=== PATIENT | female | born 1950 | race Caucasian/White ===

== ENCOUNTER → 2017-11-06 12:35 | Outpatient (CLI) | payer MEDICARE, SELFPAY ==
--- NOTE | 2017-11-06 12:38 | CDUL_ITS ---
Reason For Study: BRUIT Rt. Velocities/BP Lt. Velocities/BP Prox CCA 87/11 cm/sec. Prox CCA 114/17 cm/sec. Mid CCA 100/26 cm/sec. Mid CCA 106/23 cm/sec. Dist CCA 104/27 cm/sec. Dist CCA 95/29 cm/sec. Prox ICA 80/26 cm/sec. Prox ICA 66/20 cm/sec. Mid ICA 92/33 cm/sec. Mid ICA 85/29 cm/sec. Dist ICA 91/30 cm/sec. Dist ICA 77/28 cm/sec. Rt. ICA/CCA = .9. Lt. ICA/CCA = .8. Prox ECA 150/27 cm/sec. Prox ECA 89/17 cm/sec. Rt. Vert. 53/12 cm/sec. Lt. Vert. 58/17 cm/sec. Right Extracranial The right common carotid artery is tortuous. There is homogeneous, smooth atherosclerotic plaque noted in the right common carotid artery. There is homogeneous, smooth atherosclerotic plaque noted in the right internal carotid artery. There is intimal thickening but no significant atherosclerotic plaque noted in the right external carotid artery. Antegrade flow is noted in the right vertebral artery. There is heterogeneous, irregular atherosclerotic plaque noted in the right bulb. Left Extracranial There is homogeneous, smooth atherosclerotic plaque noted in the left common carotid artery. There is heterogeneous, smooth atherosclerotic plaque noted in the left internal carotid artery. There is homogeneous, smooth atherosclerotic plaque noted in the left external carotid artery. Antegrade flow is noted in the left vertebral artery. There is homogeneous, smooth atherosclerotic plaque noted in the left bulb. Procedure Carotid Duplex [id number]. Exam performed in department. Interpretation Summary Mild (<50%) stenosis right extracranial internal carotid. Mild (<50%) stenosis left extracranial internal carotid. Flow within the vertebral arteries is antegrade bilaterally. Ordering Physician: Frandy Benton Referring Physician: Fradny Benton Performed By: Tammy Real, DIONI, RVT
== END ==
PROVIDERS: Family Provider Family Medicine; PCP Family Medicine; Visit Provider Family Medicine
DX: R09.89 Other specified symptoms and signs involving the circulatory and respiratory systems (principal)
CPT/HCPCS: 93880

== ENCOUNTER → 2018-04-20 07:58 | Outpatient (CLI) | payer MEDICARE, SELFPAY ==
--- NOTE | 2018-04-20 08:02 | BI_ITS ---
MAMMOGRAPHY - BILATERAL SCREENING REASON FOR EXAM: Female, 68 years old. Routine annual screening examination. PERTINENT HISTORY: Aunt with breast cancer. TECHNIQUE: Digital bilateral breast odette (3D mammographic acquisition) in the CC and MLO projections. 2-D mediolateral oblique (MLO) and craniocaudad (CC) views of both breasts were obtained. CAD: Full Field Digital Mammography with Computer Added Detection was performed. COMPARISON: Comparison is made with prior examination dated November 28, 2016 and November 09, 2015. FINDINGS: Breast Composition: There are scattered areas of fibroglandular density. There are no dominant masses or suspicious calcifications. No other significant abnormalities are identified. There has been no significant change since the prior study. BI/SCREENING MAMM (CAD), BILAT IMPRESSION: Stable bilateral screening mammogram. Yearly follow-up mammogram recommended. (A) ASSESSMENT CATEGORY: BIRADS Category 1: Negative. A letter regarding these results will be sent to the patient by the facility within 30 days. Approximately 10% of breast cancers are not detected by mammography. A normal mammogram should not delay biopsy of a clinically suspicious abnormality. [id number] Electronically Signed: Elan Arambula MD at 9:13 EDT Tel [phone], Service support ,
== END ==
PROVIDERS: Family Provider Family Medicine; PCP Family Medicine; Visit Provider Family Medicine
DX: Z12.31 Encounter for screening mammogram for malignant neoplasm of breast (principal)
CPT/HCPCS: 77063; 77067

== ENCOUNTER → 2018-04-25 09:04 | Outpatient (CLI) | payer MEDICARE, SELFPAY ==
[2018-04-25 12:49] LABS: Absolute Lymphocyte Count 1.81 X10^3/ul (0.83-4.51); Absolute Neutrophil Count 2.6 X10^3/uL (2.0-7.7); Basophil# 0.02 X10^3/uL; Basophil% 0.4 % (0-1); Eosinophil# 0.19 X10^3/uL; Eosinophils% 3.8 % (0-5); Hematocrit 42.1 % (37-47); Hemoglobin 13.8 g/dl (12.0-15.0); Lymphocyte # 1.81 X10^3/ul (4.0); Lymphocyte % 36.6 % (19-41); Mean Corp Hgb Conc 32.8 g/gl (32-36); Mean Corpuscular Volume 91.5 fL (81-99); Mean Platelet Vol. 10.1 fl (6.2-12.0); Monocyte# 0.31 X10^3/uL; Monocyte% 6.3 % (0-10); Neutrophil # 2.61 X10^3/uL (2.7-7.7); Neutrophil % 52.7 % (47-70); Platelet Count 280 K/mm3 (150-450); RBC Distribution Width SD 43.1 fl (35.1-43.9)
[2018-04-25 12:56] LABS: Anion Gap 7 (5-15); BUN 17 mg/dL (7-18); BUN/Creat Ratio 19.9 RATIO (10-20); Calcium,Total 9.1 mg/dL (8.5-10.1); Chloride 105 mmol/L (98-107); Creatinine, Serum 0.86 mg/dL (0.55-1.02); EST Glomerular Filtration Rate 70 mL/min (>60); Est Glom Filt Rate - Afr Amer 84 mL/min (>60); Glucose 110 mg/dL (74-106); Potassium 4.2 mmol/L (3.5-5.1); Sodium Level 141 mmol/L (136-145); Thyroid Stim Hormone (TSH) 0.73 uIU/mL (0.358-3.74)
[2018-04-25 12:59] LABS: POSITIVE COUNT NO; POSITIVE DIFFERENTIAL NO; POSITIVE MORPHOLOGY NO
== END ==
PROVIDERS: Family Provider Family Medicine; PCP Family Medicine; Visit Provider Family Medicine
DX: I10 Essential (primary) hypertension (principal)
CPT/HCPCS: 36415; 80048; 84443; 85025

== ENCOUNTER → 2019-05-03 13:39 | Outpatient (CLI) | payer MEDICARE, SELFPAY ==
[2019-05-03 15:59] LABS: Absolute Lymphocyte Count 2.57 X10^3/uL (0.83-4.51); Absolute Neutrophil Count 3.4 X10^3/uL (2.0-7.7); Basophil# 0.05 X10^3/uL; Basophil% 0.8 % (0-1); Eosinophil# 0.12 X10^3/uL; Eosinophils% 1.8 % (0-5); Hematocrit 41.9 % (37-47); Hemoglobin 14.2 g/dL (12.0-15.0); Lymphocyte # 2.57 X10^3/ul (4.0); Lymphocyte % 39.4 % (19-41); Mean Corp Hgb Conc 33.9 g/dL (32-36); Mean Corpuscular Hgb 30.9 pg (27.0-32.0); Mean Corpuscular Volume 91.1 fL (81-99); Mean Platelet Vol. 9.6 fl (6.2-12.0); Monocyte# 0.39 X10^3/uL; NRBC Flagged by Analyzer 0 % (0-5); Neutrophil # 3.37 X10^3/uL (2.7-7.7); Neutrophil % 51.7 % (47-70); Platelet Count 307 K/mm3 (150-450); RBC Distribution Width CV 12.7 % (11.6-14.6); RBC Distribution Width SD 41.5 fl (35.1-43.9); White Blood Count 6.5 K/mm3 (4.4-11.0)
[2019-05-03 16:23] LABS: Anion Gap 9 (5-15); BUN 18 mg/dL (7-18); BUN/Creat Ratio 21.8 RATIO (10-20); Calcium,Total 9.2 mg/dL (8.5-10.1); Chloride 105 mmol/L (98-107); Creatinine, Serum 0.83 mg/dL (0.55-1.02); EST Glomerular Filtration Rate 72 mL/min (>60); Est Glom Filt Rate - Afr Amer 87 mL/min (>60); Glucose 103 mg/dL (74-106); Potassium 4.1 mmol/L (3.5-5.1); Sodium Level 141 mmol/L (136-145); Thyroid Stim Hormone (TSH) 0.91 uIU/mL (0.358-3.74)
== END ==
PROVIDERS: Family Provider Family Medicine; PCP Family Medicine; Visit Provider Family Medicine
DX: I10 Essential (primary) hypertension (principal); R73.01 Impaired fasting glucose; L40.0 Psoriasis vulgaris
CPT/HCPCS: 36415; 80048; 84443; 85025

== ENCOUNTER → 2019-06-17 12:51 | Outpatient (CLI) | payer MEDICARE, SELFPAY ==
--- NOTE | 2019-06-17 12:55 | BI_ITS ---
MAMMOGRAPHY - BILATERAL SCREENING REASON FOR EXAM: Female, 69 years old. Routine annual screening examination. PERTINENT HISTORY: Aunt with breast cancer. TECHNIQUE: Digital bilateral breast jackie (3D mammographic acquisition) in the CC and MLO projections. 2-D mediolateral oblique (MLO) and craniocaudad (CC) views of both breasts were obtained. CAD: Full Field Digital Mammography with Computer Added Detection was performed. COMPARISON: Comparison is made with prior study dated April 20, 2018 and November 28, 2016. FINDINGS: Breast Composition: There are scattered areas of fibroglandular density. There are no dominant masses or suspicious calcifications. Stable small benign appearing bilateral axillary lymph nodes. No other significant abnormalities are identified. There has been no significant change since the prior study. BI/SCREEN MAMM (CAD) W/JACKIE BILAT IMPRESSION: Stable bilateral screening mammogram. Yearly follow-up mammogram recommended. (A) ASSESSMENT CATEGORY: BIRADS Category 2: Benign. A letter regarding these results will be sent to the patient by the facility within 30 days. Approximately 10% of breast cancers are not detected by mammography. A normal mammogram should not delay biopsy of a clinically suspicious abnormality. [id number] Electronically Signed: Elan Arambula, at 14:26 EDT , Service support ,
== END ==
PROVIDERS: Family Provider Family Medicine; PCP Family Medicine; Referring Provider Family Medicine; Visit Provider Family Medicine
DX: Z12.31 Encounter for screening mammogram for malignant neoplasm of breast (principal)
CPT/HCPCS: 77063; 77067

== ENCOUNTER → 2019-06-30 16:08 | Outpatient (CLI) | payer MEDICARE, SELFPAY ==
[2019-06-30 16:11] LABS: Mucous, Urine 0 SEEN /hpf (<or=2+); Red Blood Cells-Urine 0 SEEN /hpf (0-5); Squamous Epithelial Cells - UA 0 SEEN /hpf (5-10)
[2019-06-30 16:20] LABS: Color, Urine Yellow (Yellow); Glucose, Dipstick Normal (Normal); Ketone-Dipstick Negative (Negative); Leukocyte Esterase-Dipstick 100 /ul (Negative); Nitrite-Dipstick Negative (Negative); Occult Blood-Urine 250 /ul (Negative); Protein-Dipstick 15 mg/dl (Negative); Specific Gravity, Urine 1.005 (1.002-1.030); Urine Bilirubin Dipstick Negative (Negative); Urine Clarity Clear (Clear); Urine Urobilinogen Normal (Normal); Urine pH 6.5 (5.0 - 8.0)
[2019-06-30 16:39] LABS: Bacteria 1+ /hpf (None Seen); White Blood Cells 5-10 SEEN /hpf (0-5)
== END ==
PROVIDERS: Family Provider Family Medicine; PCP Family Medicine; Referring Provider Physician Assistant Medical; Visit Provider Physician Assistant Medical
DX: N30.01 Acute cystitis with hematuria (principal)
CPT/HCPCS: 81001; 87086; 87088; 87186

== ENCOUNTER → 2020-11-02 12:03 | Outpatient (CLI) | payer MEDICARE, SELFPAY ==
--- NOTE | 2020-11-02 12:08 | BI_ITS ---
MAMMOGRAPHY - BILATERAL SCREENING REASON FOR EXAM: Female, 70 years old. Routine annual screening examination. PERTINENT HISTORY: Aunt with breast cancer. TECHNIQUE: Digital bilateral breast jackie (3D mammographic acquisition) in the CC and MLO projections. 2-D mediolateral oblique (MLO) and craniocaudad (CC) views of both breasts were obtained. CAD: Full Field Digital Mammography with Computer Added Detection was performed. COMPARISON: Comparison is made with prior examination dated 06/17/2019 and 04/20/2018. FINDINGS: Breast Composition: There are scattered areas of fibroglandular density. There are no dominant masses or suspicious calcifications. Stable small benign appearing bilateral axillary nodes. No other significant abnormalities are identified. There has been no significant change since the prior study. BI/SCRN MAMM (CAD)W/JACKIE BILAT IMPRESSION: Stable bilateral screening mammogram. Yearly follow-up mammogram recommended. (A) ASSESSMENT CATEGORY: BIRADS Category 2: Benign. A letter regarding these results will be sent to the patient by the facility within 30 days. Approximately 10% of breast cancers are not detected by mammography. A normal mammogram should not delay biopsy of a clinically suspicious abnormality. [id number] Electronically Signed: Elan Arambula MD at 13:01 EST , Service support ,
== END ==
PROVIDERS: PCP Family Medicine; Referring Provider Family Medicine; Visit Provider Family Medicine
DX: Z12.31 Encounter for screening mammogram for malignant neoplasm of breast (principal)
CPT/HCPCS: 77063; 77067

== ENCOUNTER 2022-01-03 13:17 | Outpatient (CLI) | payer MEDICARE, SELFPAY ==
--- NOTE | 2022-01-03 13:19 | BI_ITS ---
MAMMOGRAPHY - BILATERAL SCREENING REASON FOR EXAM: Female, 71 years old. Routine annual screening examination. PERTINENT HISTORY: Non-contributory. TECHNIQUE: Digital bilateral breast jackie (3D mammographic acquisition) in the CC and MLO projections. 2-D mediolateral oblique (MLO) and craniocaudad (CC) views of both breasts were obtained. CAD: Full Field Digital Mammography with Computer Added Detection was performed. COMPARISON: Comparison is made with prior examination dated 11/02/2020 and 06/17/2019. FINDINGS: Breast Composition: There are scattered areas of fibroglandular density. There are no dominant masses or suspicious calcifications. Stable benign-appearing bilateral axillary lymph nodes. No other significant abnormalities are identified. There has been no significant change since the prior study. BI/SCRN MAMM (CAD)W/JACKIE BILAT IMPRESSION: Stable bilateral screening mammogram. Yearly follow-up mammogram recommended. (A) ASSESSMENT CATEGORY: BIRADS Category 2: Benign. A letter regarding these results will be sent to the patient by the facility within 30 days. Approximately 10% of breast cancers are not detected by mammography. A normal mammogram should not delay biopsy of a clinically suspicious abnormality. [id number] Electronically Signed: Elan Arambula MD at 14:31 EDT ,
== END 2022-01-03 23:59 | disposition home or self-care (01) ==
LOC: OPBI 13:18
PROVIDERS: PCP Family Medicine; Visit Provider Family Medicine
DX: Z12.31 Encounter for screening mammogram for malignant neoplasm of breast (principal)
CPT/HCPCS: 77063; 77067

== ENCOUNTER 2022-09-19 08:54 | Emergency (ER) | payer MEDICARE, SELFPAY ==
[2022-09-19 08:57] VITALS: BP 259/87; PULSE 72; RESP 17; TEMP 36; O2SAT 99; BMI 26.4
--- NOTE | 2022-09-19 09:04 | NURSING ---
NO OLD EKGS
--- NOTE | 2022-09-19 09:24 | EKG12_ITS ---
Test Reason : palps Blood Pressure : / mmHG Vent. Rate : 076 BPM Atrial Rate : 076 BPM P-R Int : 148 ms QRS Dur : 094 ms QT Int : 410 ms P-R-T Axes : 028 021 040 degrees QTc Int : 461 ms Sinus rhythm with Premature atrial complexes Otherwise normal ECG Confirmed by BLADIMIR GRESHAM, GAUTAM ([id number]), editorial assistant MIKE COOLEY ([id number]) on 09/21/2022 11:07:24 AM Referred By: Michelle Confirmed By:GAUTAM GARRISON MD
--- NOTE | 2022-09-19 09:25 | EX.ED.DYSGE1 ---
HPI History of Present Illness Chief Complaint: Palpitations Informant: patient and spouse/S.O. Narrative Narrative: 72-year-old female presenting to the emergency room with chief complaint of palpitations and hypertension. Patient states that in 1997 she started taking atenolol after she was diagnosed with mitral valve prolapse and was having palpitations. That is her only medication at this current time. She states that over the weekend she began to feel a butterfly in her chest. She notes that her blood pressure systolically was around 200. She states that her symptoms continue and she was going to go see her primary care doctor in the office today but they were unavailable so she came here. She states she is not really having any pain. She denies any shortness of breath. states that is the first time she he has noticed that she can see her heartbeat in her neck. Patient denies any racing heart. There has been no syncope. [facility] Medical History Heart palpitations Mitral valve prolapse Home Medications atenolol 25 mg tablet 25 mg PO DAILY #90 tabs 06/30/19 [History Last Taken Unknown] amlodipine 5 mg tablet 5 mg PO DAILY #30 tabs 09/19/22 [Rx Last Taken Unknown] clonidine HCl 0.2 mg tablet 0.2 mg PO Q8H PRN hypertensive emergency #20 tabs 09/19/22 [Rx Last Taken Unknown] Allergy/AdvReac Type Severity Reaction Status Date / Time No Known Allergies Allergy Unverified 09/19/22 08:54 Surgical History History of tubal ligation Social History Smoking Status: Never smoker alcohol intake: never ROS ROS ED Constitutional Constitutional ED: Denies chills, fever(s) or weight loss Eyes Eyes: Denies change in vision or diplopia ENT ENT ED: Denies ear pain, rhinorrhea or sore throat Cardiovascular Cardiovascular: Reports palpitations; Denies chest pain, orthopnea or racing heartbeat Respiratory/Chest Respiratory/Chest: Denies cough, dyspnea, dyspnea on exertion or orthopnea Gastrointestinal Gastrointestinal: Denies abdominal pain, diarrhea, nausea or vomiting Genitourinary Genitourinary ED: Denies dysuria, hematuria or urinary frequency Musculoskeletal Musculoskeletal: Denies arthralgias or myalgias Integumentary Denies abscess or rash Neurologic Neurologic: Denies headache(s) or weakness Psychiatric Psychiatric: Denies anxiety, depression, suicidal ideation or suicidal thoughts Endocrine Endocrinology: Denies polydipsia, polyphagia or polyuria Allergic/Immunologic Allergic/Immunologic ED: Denies mouth swelling, tongue swelling or urticaria EXAM Physical Exam Const Vital Signs: 09/19/22 08:57 09/19/22 09:42 09/19/22 09:42 Temperature 96.8 F L Temperature Source Temporal Pulse Rate 72 69 Respiratory Rate 17 18 Respiratory Effort Normal Non-Labored Blood Pressure 259/87 H 242/82 H Blood Pressure Mean 144 135 Pulse Ox 99 98 Oxygen Delivery Method Room Air Room Air 09/19/22 11:00 09/19/22 12:00 09/19/22 12:30 Temperature Temperature Source Pulse Rate 64 60 Respiratory Rate Respiratory Effort Blood Pressure 210/78 H 166/75 H 170/70 H Blood Pressure Mean 122 105 103 Pulse Ox Oxygen Delivery Method Positive well nourished and well developed General Appearance ED: well developed HEENT Reports normocephalic, head/scalp atraumatic and moist mucous membranes Eyes PERRL and EOMs intact bilaterally Neck no lymphadenopathy, supple and no JVD Resp normal respiratory effort and clear to auscultation bilaterally Cardio regular rate, regular rhythm and no murmurs GI normal to inspection, nondistended, normoactive bowel sounds and non-tender Palpation: soft Back/Spine no CVA tenderness and normal ROM Extremity normal to inspection General Extremety ED: Negative for edema General Extremity: Negative for edema Neuro oriented x3 and CN's II-XII intact bilaterally Sensorium / Orientation: alert Motor Exam: strength 5/5 throughout Psych mental status grossly normal Mood & Affect: Negative for depressed or tearful Skin no rashes or lesions noted and no wounds MDM MDM MDM Narrative Medical decision making narrative: CBC CMP were normal. Troponin at 9. TSH 1.34. My interpretation of the chest x-ray is no acute process. CT of the brain was obtained and was negative. Patient received 0.2 mg of clonidine blood pressure has decreased now to 170/70. The blood pressure of nearly 260 was confirmed by manual pressures. Patient still feels some PACs but notes that she is feeling better. I spoke with Dr. Dickey would recommend adding amlodipine to the patient's atenolol. I can write for some clonidine tablets for as needed use. She is to monitor her blood pressures and follow-up with primary care Lab Data Attestation: I reviewed the patient's lab results. Labs: Laboratory Results - last 24 hr 09/19/22 09/19/22 09:40 09:40 WBC 6.1 RBC 4.82 Hgb 15.0 Hct 44.2 MCV 91.7 MCH 31.1 MCHC 33.9 RDW Std Deviation 43.0 RDW Coeff of Verónica 12.7 Plt Count 326 MPV 9.2 Immature Gran % (Auto) 0.300 Neut % (Auto) 66.1 Lymph % (Auto) 27.7 Dickson % (Auto) 4.7 Eos % (Auto) 0.7 Baso % (Auto) 0.5 Absolute Neuts (auto) 4.1 Absolute Lymphs (auto) 1.70 Nucleated RBC % 0 Sodium 138 Potassium 4.4 Chloride 107 Carbon Dioxide 28.0 Anion Gap 3 L BUN 17 Creatinine 0.83 Estim Creat Clear Calc 55.67 Est GFR (MDRD) Af Amer 86 Est GFR (MDRD) Non-Af 71 BUN/Creatinine Ratio 20.5 H Glucose 127 H Calcium 9.1 Magnesium 2.4 Total Bilirubin 0.40 AST 13 L ALT 20 Alkaline Phosphatase 78 Troponin I High Sens 9 Total Protein 7.3 Albumin 3.9 Globulin 3.4 Albumin/Globulin Ratio 1.1 TSH 1.34 Radiography Diagnostic Testing: Clinical Impression(s) from Imaging Studies Chest X-Ray 09/19/22 09:40 IMPRESSION: Hyperinflation. The lungs are clear. Electronically Signed: Elan Arambula MD at 10:06 EST , Brain CT 09/19/22 11:50 IMPRESSION: Normal unenhanced CT scan of the brain. Electronically Signed: Elan Arambula MD at 12:12 EST , EKG Initial EKG: Attestation: I personally reviewed and interpreted this EKG as follows: Comments: Sinus rhythm with premature atrial complexes and a ventricular rate of 76 bpm. No concerning features of ACS noted Discharge Plan Triage Chief Complaint: Palpitations ED Provider: Chintan Hardy Dx/Rx/DC Orders Clinical Impression: Atrial premature contractions, Hypertensive urgency Instructions: ED High Blood Pressure Hypertension Prescriptions: New amlodipine 5 mg tablet 5 mg PO DAILY Qty: 30 0RF clonidine HCl 0.2 mg tablet 0.2 mg PO Q8H PRN (Reason: hypertensive emergency) Qty: 20 0RF Rx Instructions: 1 tablet every 8 hours as needed for systolic blood pressure greater than 190 mmHg No Action atenolol 25 mg tablet 25 mg PO DAILY Qty: 90 Primary Care Provider: Frandy Benton Referrals: Frandy Benton MD [Primary Care Provider] - 1-2 Weeks Disposition Disposition: Home, Self Care
--- NOTE | 2022-09-19 09:29 | NURSING ---
NO OLD EKGS
--- NOTE | 2022-09-19 09:40 | RAD_ITS ---
STUDY: X-RAY CHEST REASON FOR EXAM: Female, 72 years old. HYPERTENSIVE URGENCY TECHNIQUE: Single AP portable view of the chest. COMPARISON: None. FINDINGS: EKG electrodes are seen. Hyperinflation. The lungs are clear. There is no demonstrated pleural abnormality. Normal size heart. Normal mediastinum and genaro. Normal visualized pulmonary arteries. Normal visualized aortic arch and descending thoracic aorta. There are degenerative changes of the visualized thoracic spine. Normal visualized ribs, clavicles, and shoulders. There is no demonstrated abnormality of the visualized soft tissue structures of the upper abdomen. RAD/Chest 1 View (Portable) IMPRESSION: Hyperinflation. The lungs are clear. Electronically Signed: Elan Arambula MD at 10:06 [facility] ,
[2022-09-19 09:42] VITALS: BP 242/82; PULSE 69; RESP 18; O2SAT 98
[2022-09-19 10:06] LABS: Absolute Neutrophil Count 4.1 X10^3/uL (2.0-7.7); Basophil# 0.03 X10^3/uL; Basophil% 0.5 % (0-1); Eosinophil# 0.04 X10^3/uL; Eosinophils% 0.7 % (0-5); Hematocrit 44.2 % (37-47); Lymphocyte % 27.7 % (19-41); Mean Corp Hgb Conc 33.9 g/dL (32-36); Mean Corpuscular Hgb 31.1 pg (27.0-32.0); Mean Corpuscular Volume 91.7 fL (81-99); Mean Platelet Vol. 9.2 fl (6.2-12.0); Monocyte# 0.29 X10^3/uL; Monocyte% 4.7 % (0-10); NRBC Flagged by Analyzer 0 % (0-5); Neutrophil # 4.05 X10^3/uL (2.7-7.7); Neutrophil % 66.1 % (47-70); Platelet Count 326 K/mm3 (150-450); RBC Distribution Width CV 12.7 % (11.6-14.6); Red Blood Count 4.82 M/mm3 (4.2-5.4); White Blood Count 6.1 K/mm3 (4.4-11.0)
[2022-09-19] MEDS: cloNIDine HCl 0.2 MG Tablet PO (10:13)
[2022-09-19 10:15] LABS: ALB/GLOB Ratio 1.1 RATIO (0.9-2.4); AST(SGOT) 13 U/L (15-37); Alanine Aminotransfer ALT/SGPT 20 U/L (13-56); Albumin, Serum 3.9 g/dL (3.2-5.0); Alkaline Phosphatase 78 U/L (45-117); Anion Gap 3 (5-15); BUN 17 mg/dL (7-18); BUN/Creat Ratio 20.5 RATIO (10-20); Calcium,Total 9.1 mg/dL (8.5-10.1); Chloride 107 mmol/L (98-107); Creatinine, Serum 0.83 mg/dL (0.55-1.02); EST Glomerular Filtration Rate 71 mL/min (>60); Est Glom Filt Rate - Afr Amer 86 mL/min (>60); Estimated Creatinine Clearance 55.67 ml/min; Globulin 3.4 g/dL (2.2-4.2); Glucose 127 mg/dL (74-106); Magnesium 2.4 mg/dL (1.6-2.6); Potassium 4.4 mmol/L (3.5-5.1); Protein, Total 7.3 g/dL (6.4-8.2); Sodium Level 138 mmol/L (136-145); Thyroid Stim Hormone (TSH) 1.34 uIU/mL (0.358-3.74); Troponin-I HS 9 pg/mL (3.0-54.0)
[2022-09-19 11:00] VITALS: BP 210/78; PULSE 64
--- NOTE | 2022-09-19 11:50 | CT_ITS ---
STUDY: CT BRAIN WITHOUT CONTRAST REASON FOR EXAM: Female, 72 years old. Hypertensive emergency. Palpitations. RADIATION DOSAGE (If Supplied By Facility): CTDIvol = ( 44.99 ) mGy, DLP = ( 812.98 ) mGycm TECHNIQUE: Transaxial CT imaging of the brain was performed without administration of intravenous contrast material. Individualized dose optimization techniques were used for this CT. COMPARISON: No relevant priors. FINDINGS: Normal soft tissue structures. Normal calvarium. Normal size ventricles and extra-axial spaces for the patient''s age. Normal white matter tracts of the cerebral hemispheres. Normal basal ganglia and thalami. Normal brainstem. Normal cerebellum. There is no intracranial hemorrhage. There are no findings of an acute ischemic infarction. Atherosclerotic plaque formation of the vertebral arteries and cavernous portions of the internal carotid arteries bilaterally. Normal visualized paranasal sinuses. CT/Brain/Head without Contrast IMPRESSION: Normal unenhanced CT scan of the brain. Electronically Signed: Elan Arambula MD at 12:12 EST ,
[2022-09-19 12:00] VITALS: BP 166/75; PULSE 60
[2022-09-19 12:30] VITALS: BP 170/70
[2022-09-19 13:45] VITALS: BP 168/81
== END 2022-09-19 13:46 | disposition home or self-care (01) ==
PROVIDERS: Emergency Provider Emergency Medicine; PCP Family Medicine; Visit Provider Emergency Medicine
DX: I49.1 Atrial premature depolarization (principal); I16.0 Hypertensive urgency; Z79.899 Other long term (current) drug therapy
CPT/HCPCS: 70450; 71045; 80053; 83735; 84443; 84484; 85025; 93005; 99285; A4216

== ENCOUNTER 2022-09-25 10:57 | Emergency (ER) | payer MEDICARE, SELFPAY ==
[2022-09-25 10:59] VITALS: BP 226/75; PULSE 84; RESP 16; TEMP 36.1; O2SAT 100; BMI 25.9
--- NOTE | 2022-09-25 11:21 | EDS_ITS ---
HPI <MILLA Manzo - Last Filed: 09/25/22 13:30> History of Present Illness Chief Complaint: Hypertension Narrative Narrative: 72-year-old female is here for evaluation of her asymptomatic high blood pressure. She has had hypertension and intermittent palpitations for mitral valve prolapse since the and has been on atenolol 25 mg. She gets the palpitations every couple days but it seem more frequent a week ago so she was seen in the ER. At that time her blood pressure was over 200 systolic so after work-up she was discharged with additional medications including amlodipine 5 mg once daily and clonidine 0.2 mg as needed if her pressure was over 190. She was taking these consistently and had a follow-up with her primary care on 09/23. It had not improved so they added lisinopril?HCTZ 10-12.5 mg. She is taking all 4 of these medications with no improvement in blood pressure which prompted her to come in today. She denies chest pain, shortness of breath, recent palpitations, headache, visual changes, or focal motor or sensory changes. PFSH <MILLA Manzo - Last Filed: 09/25/22 13:30> FOR[facility]LY [facility], [facility] Medical History (Updated 09/25/22 @ 13:23 by MILLA Manzo) Heart palpitations Mitral valve prolapse Home Medications atenolol 25 mg tablet 25 mg PO DAILY #90 tabs 06/30/19 [History Last Taken Unknown] amlodipine 5 mg tablet 5 mg PO DAILY #30 tabs 09/19/22 [Rx Last Taken Unknown] clonidine HCl 0.2 mg tablet 0.2 mg PO Q8H PRN hypertensive emergency #20 tabs 09/19/22 [Rx Last Taken Unknown] Allergy/AdvReac Type Severity Reaction Status Date / Time No Known Allergies Allergy Unverified 09/25/22 10:58 Surgical History History of tubal ligation Social History Smoking Status: Never smoker alcohol intake: never ROS <MILLA Manzo - Last Filed: 09/25/22 13:30> ROS ED ROS Narrative Constitutional: Negative for fever, chills, malaise. Eyes: Negative for visual change. ENT: Negative for sore throat, ear pain, rhinorrhea. CVS: Negative for palpitations, chest pain, syncope. Respiratory: Negative for shortness of breath, cough, orthopnea. GI: Negative for abdominal pain, nausea, vomiting, diarrhea, constipation, melena, hematochezia. : Negative for dysuria, hematuria or frequency. Neuro: Negative for headache, motor/sensory dysfunction. Skin: Negative for rash, abscess, or wound. Musc: Negative for joint pain, swelling, trauma. Heme: Negative for easy bruising, bleeding, lymphadenopathy. EXAM <MILLA Manzo - Last Filed: 09/25/22 13:30> Physical Exam Narrative Exam Narrative: CONST: Patient sitting in no acute distress. EYES: Normal inspection. ENT: Normal inspection. NECK: Normal inspection. RESP: No respiratory distress, CTAB. CVS: Regular rate and rhythm, no murmur, no gallop. ABD: Soft and nontender, no guarding or rebound, nondistended. SKIN: Color normal, no rash, warm, dry, intact. EXTREMITIES: Normal appearance, no pedal edema. NEURO: Oriented x4. PSYCH: Normal affect. Const Vital Signs: 09/25/22 10:59 09/25/22 11:45 09/25/22 11:45 Temperature 96.9 F L Temperature Source Temporal Pulse Rate 84 Respiratory Rate 16 Respiratory Effort Normal Non-Labored Respiratory Pattern Normal Blood Pressure 226/75 H 137/60 H Blood Pressure Mean 125 85 Pulse Ox 100 Oxygen Delivery Method Room Air 09/25/22 12:12 09/25/22 13:14 Temperature Temperature Source Pulse Rate 56 L Respiratory Rate Respiratory Effort Respiratory Pattern Blood Pressure 179/64 H 152/67 H Blood Pressure Mean 102 95 Pulse Ox Oxygen Delivery Method <Jason Ann MD - Last Filed: 09/25/22 19:23> Physical Exam Const Vital Signs: 09/25/22 10:59 09/25/22 11:45 09/25/22 11:45 Temperature 96.9 F L Temperature Source Temporal Pulse Rate 84 Respiratory Rate 16 Respiratory Effort Normal Non-Labored Respiratory Pattern Normal Blood Pressure 226/75 H 137/60 H Blood Pressure Mean 125 85 Pulse Ox 100 Oxygen Delivery Method Room Air 09/25/22 12:12 09/25/22 13:14 Temperature Temperature Source Pulse Rate 56 L Respiratory Rate Respiratory Effort Respiratory Pattern Blood Pressure 179/64 H 152/67 H Blood Pressure Mean 102 95 Pulse Ox Oxygen Delivery Method [facility] <MILLA Manzo - Last Filed: 09/25/22 13:30> [facility] Narrative Medical decision making narrative: Patient has persistently high blood pressure despite taking multiple antihypertensives including atenolol, amlodipine, lisinopril?HCTZ, and clonidine as needed. She arrived with a BP of 226/75, HR 84, otherwise normal vital signs. She has no associated symptoms and an unremarkable exam. CBC, BMP, troponin are all negative for signs of acute organ injury. After IV hydralazine 10 mg her BP improved to 152/67. I spoke with Dr. Ashton who she is seen recently for these blood pressure concerns and he recommended increasing amlodipine to 10 mg at night which she takes in addition with the beta-preethi and continuing her other meds. She will call his office for a close follow-up appointment in the next few days. Patient was comfortable with this plan and was discharged in stable condition. Lab Data Attestation: I reviewed the patient's lab results. Labs: Laboratory Results - last 24 hr 09/25/22 09/25/22 12:17 12:17 WBC 5.5 RBC 4.61 Hgb 14.0 Hct 41.9 MCV 90.9 MCH 30.4 MCHC 33.4 RDW Std Deviation 41.6 RDW Coeff of Verónica 12.6 Plt Count 304 MPV 9.6 Immature Gran % (Auto) 0.700 Neut % (Auto) 59.8 Lymph % (Auto) 31.6 Sevier % (Auto) 6.5 Eos % (Auto) 0.9 Baso % (Auto) 0.5 Absolute Neuts (auto) 3.3 Absolute Lymphs (auto) 1.75 Nucleated RBC % 0 Sodium 139 Potassium 4.0 Chloride 104 Carbon Dioxide 30.0 Anion Gap 5 BUN 16 Creatinine 0.92 Estim Creat Clear Calc 50.22 Est GFR (MDRD) Af Amer 77 Est GFR (MDRD) Non-Af 63 BUN/Creatinine Ratio 17.4 Glucose 125 H Calcium 9.3 Troponin I High Sens 9 <Jason Ann MD - Last Filed: 09/25/22 19:23> [facility] Narrative Medical decision making narrative: Patient has persistently high blood pressure despite taking multiple antihypertensives including atenolol, amlodipine, lisinopril?HCTZ, and clonidine as needed. She arrived with a BP of 226/75, HR 84, otherwise normal vital signs. She has no associated symptoms and an unremarkable exam. CBC, BMP, troponin are all negative for signs of acute organ injury. After IV hydralazine 10 mg her BP improved to 152/67. I spoke with Dr. Ashton who she is seen recently for these blood pressure concerns and he recommended increasing amlodipine to 10 mg at night which she takes in addition with the beta-preethi and continuing her other meds. She will call his office for a close follow-up appointment in the next few days. Patient was comfortable with this plan and was discharged in stable condition. I have personally performed a face to face assessment of the patient and have reviewed the LANA Note. I performed a substantive portion of the visit including all aspects of the following. My olivera findings include: History is elevated blood pressure, albeit asymptomatic. Recently started on new medications, seen by primary care 2 days ago, does not have follow-up until next week. Exam is afebrile. Vital signs noted. Elevated blood pressures. Regular rate and rhythm. Lungs clear to auscultation bilaterally. Abdomen soft and nontender. Medical Decision Making check labs. IV antihypertensive. Discussed with primary care. Increase evening amlodipine as elevated blood pressures are found in the morning. Follow-up primary care within the next few days. Discharge. Other additions or changes: [None] Lab Data Labs: Laboratory Results - last 24 hr 09/25/22 09/25/22 12:17 12:17 WBC 5.5 RBC 4.61 Hgb 14.0 Hct 41.9 MCV 90.9 MCH 30.4 MCHC 33.4 RDW Std Deviation 41.6 RDW Coeff of Verónica 12.6 Plt Count 304 MPV 9.6 Immature Gran % (Auto) 0.700 Neut % (Auto) 59.8 Lymph % (Auto) 31.6 Sevier % (Auto) 6.5 Eos % (Auto) 0.9 Baso % (Auto) 0.5 Absolute Neuts (auto) 3.3 Absolute Lymphs (auto) 1.75 Nucleated RBC % 0 Sodium 139 Potassium 4.0 Chloride 104 Carbon Dioxide 30.0 Anion Gap 5 BUN 16 Creatinine 0.92 Estim Creat Clear Calc 50.22 Est GFR (MDRD) Af Amer 77 Est GFR (MDRD) Non-Af 63 BUN/Creatinine Ratio 17.4 Glucose 125 H Calcium 9.3 Troponin I High Sens 9 Discharge Plan Triage Chief Complaint: Hypertension ED Midlevel Provider: Marcy Soria ED Provider: Jason Ann Dx/Rx/DC Orders Clinical Impression: Hypertensive urgency Instructions: Controlling High Blood Pressure Prescriptions: No Action atenolol 25 mg tablet 25 mg PO DAILY Qty: 90 amlodipine 5 mg tablet 5 mg PO DAILY Qty: 30 0RF clonidine HCl 0.2 mg tablet 0.2 mg PO Q8H PRN (Reason: hypertensive emergency) Qty: 20 0RF Rx Instructions: 1 tablet every 8 hours as needed for systolic blood pressure greater than 190 mmHg Primary Care Provider: Frandy Benton Referrals: Frandy Benton MD [Primary Care Provider] - Activity Restrictions/Additional Instructions: Start taking amlodipine 10 mg at night (increase to 2 tablets). Keep all the other medications the same. Call the doctor's office tomorrow morning for an appointment in the next few days. Disposition Disposition: Home, Self Care Discharge Date/Time: 09/25/22 13:54
[2022-09-25 11:45] VITALS: BP 137/60
[2022-09-25] MEDS: hydrALAZINE 20 MG/ML Vial 10 MG IV (12:11)
[2022-09-25 12:12] VITALS: BP 179/64; PULSE 56
[2022-09-25 12:24] LABS: Absolute Lymphocyte Count 1.75 X10^3/uL (0.83-4.51); Absolute Neutrophil Count 3.3 X10^3/uL (2.0-7.7); Basophil# 0.03 X10^3/uL; Basophil% 0.5 % (0-1); Eosinophil# 0.05 X10^3/uL; Eosinophils% 0.9 % (0-5); Hematocrit 41.9 % (37-47); Lymphocyte # 1.75 X10^3/ul (0.83-4.51); Lymphocyte % 31.6 % (19-41); Mean Corp Hgb Conc 33.4 g/dL (32-36); Mean Corpuscular Hgb 30.4 pg (27.0-32.0); Mean Corpuscular Volume 90.9 fL (81-99); Mean Platelet Vol. 9.6 fl (6.2-12.0); Monocyte# 0.36 X10^3/uL; Monocyte% 6.5 % (0-10); NRBC Flagged by Analyzer 0 % (0-5); Neutrophil % 59.8 % (47-70); Platelet Count 304 K/mm3 (150-450); RBC Distribution Width CV 12.6 % (11.6-14.6); RBC Distribution Width SD 41.6 fl (35.1-43.9); Red Blood Count 4.61 M/mm3 (4.2-5.4); White Blood Count 5.5 K/mm3 (4.4-11.0)
[2022-09-25 12:39] LABS: Anion Gap 5 (5-15); BUN 16 mg/dL (7-18); BUN/Creat Ratio 17.4 RATIO (10-20); Calcium,Total 9.3 mg/dL (8.5-10.1); Chloride 104 mmol/L (98-107); Creatinine, Serum 0.92 mg/dL (0.55-1.02); EST Glomerular Filtration Rate 63 mL/min (>60); Est Glom Filt Rate - Afr Amer 77 mL/min (>60); Estimated Creatinine Clearance 50.22 ml/min; Glucose 125 mg/dL (74-106); Sodium Level 139 mmol/L (136-145); Troponin-I HS 9 pg/mL (3.0-54.0)
[2022-09-25 13:14] VITALS: BP 152/67
== END 2022-09-25 13:54 | disposition home or self-care (01) ==
PROVIDERS: Physician Assistant; Emergency Provider Emergency Medicine; PCP Family Medicine; Visit Provider Emergency Medicine
DX: I16.0 Hypertensive urgency (principal); I10 Essential (primary) hypertension; I34.1 Nonrheumatic mitral (valve) prolapse; R00.2 Palpitations; Z79.899 Other long term (current) drug therapy
CPT/HCPCS: 80048; 84484; 85025; 96374; 99283; A4216

== ENCOUNTER → 2023-01-12 | Outpatient (CLI) | payer MEDICARE, SELFPAY ==
[2023-01-12 18:12] LABS: Anion Gap 9 (5-15); BUN 17 mg/dL (7-18); BUN/Creat Ratio 16.3 RATIO (10-20); Calcium,Total 9.3 mg/dL (8.5-10.1); Chloride 101 mmol/L (98-107); Cholesterol 246 mg/dL (200); Creatinine, Serum 1.04 mg/dL (0.55-1.02); EST Glomerular Filtration Rate 55 mL/min (>60); Est Glom Filt Rate - Afr Amer 66 mL/min (>60); Glucose 103 mg/dL (74-106); High Density Lipoprotein 77 mg/dL; Potassium 3.6 mmol/L (3.5-5.1); Sodium Level 137 mmol/L (136-145); Triglycerides 131 mg/dL; Very Low Density Lipoprotein 26 mg/dL (5-40)
[2023-01-12 18:16] LABS: Hemoglobin A1c 5.8 % (3.8-5.6)
== END | disposition home or self-care (01) ==
LOC: BFHLAB 15:02
PROVIDERS: PCP Family Medicine; Referring Provider Family Medicine; Visit Provider Family Medicine
DX: I10 Essential (primary) hypertension (principal); R73.01 Impaired fasting glucose
CPT/HCPCS: 36415; 80048; 80061; 83036

== ENCOUNTER → 2023-01-24 | Outpatient (CLI) | payer MEDICARE, SELFPAY ==
--- NOTE | 2023-01-24 15:22 | BI_ITS ---
MAMMOGRAPHY - BILATERAL SCREENING REASON FOR EXAM: Female, 73 years old. Routine annual screening examination. PERTINENT HISTORY: Aunt with breast cancer. TECHNIQUE: Digital bilateral breast jackie (3D mammographic acquisition) in the CC and MLO projections. 2-D mediolateral oblique (MLO) and craniocaudad (CC) views of both breasts were obtained. CAD: Full Field Digital Mammography with Computer Added Detection was performed. COMPARISON: Comparison is made with prior study of January 03, 2022 and November 02, 2020. FINDINGS: Breast Composition: There are scattered areas of fibroglandular density. There are no dominant masses or suspicious calcifications. Stable small benign-appearing bilateral axillary lymph nodes. No other significant abnormalities are identified. There has been no significant change since the prior study. BI/SCRN MAMM (CAD)W/JACKIE BILAT IMPRESSION: Stable bilateral screening mammogram. Yearly follow-up mammogram recommended. (A) ASSESSMENT CATEGORY: BIRADS Category 2: Benign. A letter regarding these results will be sent to the patient by the facility within 30 days. Approximately 10% of breast cancers are not detected by mammography. A normal mammogram should not delay biopsy of a clinically suspicious abnormality. [id number] Electronically Signed: Elan Arambula MD at 8:49 EDT ,
--- NOTE | 2023-01-24 15:28 | BD_ITS ---
STUDY: DUAL ENERGY X-RAY ABSORPTIOMETRY / DXA REASON FOR EXAM: Female, 73 years old. V76.12ScreeningBONE DENSITY REASON FOR EXAM TECHNIQUE: Bone Mineral Density (BMD) measurements of lumbar spine and bilateral hips were obtained. COMPARISON: Comparison is made with prior study dated November 02, 2010. FINDINGS: Lumbar Spine (L1-L4): g/cm2 (1.063) / T-score (0.1) / Z-score (2.5) Findings are suggestive of normal bone density with a low fracture risk. Left Femur Total: g/cm2 (0.713) / T-score (-1.9) / Z-score (-0.1) Left Femoral Neck: g/cm2 (0.580) / T-score (-2.4) / Z-score (-0.3) Right Femur Total: g/cm2 (0.755) / T-score (-1.5) / Z-score (0.2) Right Femoral Neck: g/cm2 (0.625) / T-score (-2.0) / Z-score (0.1) The T-Scores on the most recent prior examination were: Lumbar Spine (L1-L4): There has been improvement of bone density since the previous examination. Left Femur Total: which represents a worsening of 12.9%. Right Femur Total: which represents a worsening of 10.2%. BD/Dexa Bone Density Study IMPRESSION: The patient is considered osteopenic as outlined below according to World Ken Organization (WHO) criteria with a high fracture risk. There has been worsening of bone density since the previous examination. Reference Information: The T-score is the number of standard deviations above or below the standard which is normal for young adults at their peak bone mineral density. The World Health Organization (WHO) interprets the T-scores as follows: Above -1 Normal bone density Between -1 and -2.5 Osteopenia Equal to / or below -2.5 Osteoporosis As a practical clinical guideline, osteopenia may be graded as follows: Mild -1 through -1.5 Moderate -1.6 through -2.0 Severe -2.1 through -2.4 The Z-score is the number of standard deviations above or below age-matched controls. A Z-score of less than -1.5 would be considered abnormal. References: 1. NIH Osteoporosis and Related Bone Diseases www osteo.org 2. International Society for Clinical Densitometry www iscd.org 3. National Osteoporosis Foundation www nof.org Electronically Signed: Elan Arambula MD at 14:43 EDT ,
== END | disposition home or self-care (01) ==
LOC: OPBD 15:20
PROVIDERS: PCP Family Medicine; Referring Provider Family Medicine; Visit Provider Family Medicine
DX: Z12.31 Encounter for screening mammogram for malignant neoplasm of breast (principal); M81.0 Age-related osteoporosis without current pathological fracture
CPT/HCPCS: 77063; 77067; 77080

== ENCOUNTER → 2024-01-15 | Outpatient (CLI) | payer MEDICARE, SELFPAY ==
[2024-01-15 12:32] LABS: Absolute Lymphocyte Count 2.51 X10^3/uL (0.83-4.51); Absolute Neutrophil Count 2.6 X10^3/uL (2.0-7.7); Basophil# 0.05 X10^3/uL; Basophil% 0.9 % (0-1); Eosinophil# 0.14 X10^3/uL; Eosinophils% 2.4 % (0-5); Hematocrit 40.2 % (37-47); Hemoglobin 13.5 g/dL (12.0-15.0); Lymphocyte # 2.51 X10^3/ul (0.83-4.51); Lymphocyte % 43.7 % (19-41); Mean Corp Hgb Conc 33.6 g/dL (32-36); Mean Corpuscular Hgb 29.9 pg (27.0-32.0); Mean Corpuscular Volume 89.1 fL (81-99); Mean Platelet Vol. 9.5 fl (6.2-12.0); Monocyte# 0.42 X10^3/uL; Monocyte% 7.3 % (0-10); NRBC Flagged by Analyzer 0 % (0-5); Neutrophil # 2.62 X10^3/uL (2.7-7.7); Neutrophil % 45.5 % (47-70); Platelet Count 363 K/mm3 (150-450); RBC Distribution Width CV 12.6 % (11.6-14.6); RBC Distribution Width SD 41.5 fl (35.1-43.9); Red Blood Count 4.51 M/mm3 (4.2-5.4); White Blood Count 5.8 K/mm3 (4.4-11.0)
[2024-01-15 12:56] LABS: Vitamin D,25 Hydroxy 48.1 ng/mL
[2024-01-15 13:24] LABS: Hemoglobin A1c 5.7 % (3.8-5.6)
[2024-01-15 13:33] LABS: ALB/GLOB Ratio 1.3 RATIO (0.9-2.4); AST(SGOT) 18 U/L (15-37); Alanine Aminotransfer ALT/SGPT 21 U/L (13-56); Albumin, Serum 4.3 g/dL (3.2-5.0); Alkaline Phosphatase 47 U/L (45-117); Anion Gap 9 (5-15); BUN 19 mg/dL (7-18); Calcium,Total 10.3 mg/dL (8.5-10.1); Chloride 100 mmol/L (98-107); Cholesterol 263 mg/dL (200); EST Glomerular Filtration Rate 57 mL/min (>60); Est Glom Filt Rate - Afr Amer 69 mL/min (>60); Globulin 3.4 g/dL (2.2-4.2); Glucose 110 mg/dL (74-106); High Density Lipoprotein 86 mg/dL; Potassium 4.2 mmol/L (3.5-5.1); Protein, Total 7.7 g/dL (6.4-8.2); Sodium Level 135 mmol/L (136-145); Triglycerides 100 mg/dL; Very Low Density Lipoprotein 20 mg/dL (5-40)
[2024-01-15 14:47] LABS: PTHIN 34.8 pg/mL (18.4-80.1)
== END | disposition home or self-care (01) ==
LOC: BFHLAB 09:18
PROVIDERS: PCP Family Medicine; Visit Provider Family Medicine
DX: I10 Essential (primary) hypertension (principal); M81.0 Age-related osteoporosis without current pathological fracture; R73.01 Impaired fasting glucose; E83.52 Hypercalcemia
CPT/HCPCS: 36415; 80053; 80061; 82306; 83036; 83970; 85025

== ENCOUNTER → 2024-02-07 | Outpatient (CLI) | payer MEDICARE, SELFPAY ==
--- NOTE | 2024-02-07 11:47 | BI_ITS ---
MAMMOGRAPHY - BILATERAL SCREENING REASON FOR EXAM: Female, 74 years old. Routine annual screening examination. PERTINENT HISTORY: Aunt with breast cancer. TECHNIQUE: Digital bilateral breast jackie (3D mammographic acquisition) in the CC and MLO projections. 2-D mediolateral oblique (MLO) and craniocaudad (CC) views of both breasts were obtained. CAD: Full Field Digital Mammography with Computer Added Detection was performed. COMPARISON: Comparison is made with prior study dated January 24, 2023 and January 03, 2022. FINDINGS: Breast Composition: There are scattered areas of fibroglandular density. There are no dominant masses or suspicious calcifications. Stable small benign-appearing bilateral axillary lymph nodes. No other significant abnormalities are identified. There has been no significant change since the prior study. BI/SCRN MAMM (CAD)W/JACKIE BILAT IMPRESSION: Stable bilateral screening mammogram. Yearly follow-up mammogram recommended. (A) ASSESSMENT CATEGORY: BIRADS Category 2: Benign. A letter regarding these results will be sent to the patient by the facility within 30 days. Approximately 10% of breast cancers are not detected by mammography. A normal mammogram should not delay biopsy of a clinically suspicious abnormality. [id number] Electronically Signed: Elan Arambula MD at 12:25 EDT ,
== END | disposition home or self-care (01) ==
LOC: OPBI 11:45
PROVIDERS: PCP Family Medicine; Referring Provider Family Medicine; Visit Provider Family Medicine
DX: Z12.31 Encounter for screening mammogram for malignant neoplasm of breast (principal)
CPT/HCPCS: 77063; 77067

== ENCOUNTER → 2024-04-17 | Outpatient (CLI) | payer MEDICARE, SELFPAY ==
[2024-04-17 12:19] LABS: AST(SGOT) 17 U/L (15-37); Alanine Aminotransfer ALT/SGPT 19 U/L (13-56); Albumin, Serum 3.7 g/dL (3.2-5.0); Alkaline Phosphatase 50 U/L (45-117); Bilirubin, Direct 0.14 mg/dL (0.00-0.30); Cholesterol 177 mg/dL (200); Globulin 3.4 g/dL (2.2-4.2); High Density Lipoprotein 90 mg/dL; Protein, Total 7.1 g/dL (6.4-8.2); Triglycerides 85 mg/dL; Very Low Density Lipoprotein 17 mg/dL (5-40)
== END | disposition home or self-care (01) ==
LOC: BFHLAB 08:55
PROVIDERS: PCP Family Medicine; Referring Provider Family Medicine; Visit Provider Family Medicine
DX: E78.5 Hyperlipidemia, unspecified (principal)
CPT/HCPCS: 36415; 80061; 80076

== ENCOUNTER → 2025-01-16 | Outpatient (CLI) | payer MEDICARE, SELFPAY ==
[2025-01-16 12:45] LABS: Absolute Lymphocyte Count 1.55 X10^3/uL (0.83-4.51); Basophil# 0.04 X10^3/uL; Basophil% 0.7 % (0-1); Eosinophil# 0.09 X10^3/uL; Eosinophils% 1.7 % (0-5); Hematocrit 38.3 % (37-47); Hemoglobin 13.1 g/dL (12.0-15.0); Lymphocyte # 1.55 X10^3/ul (0.83-4.51); Mean Corp Hgb Conc 34.2 g/dL (32-36); Mean Corpuscular Hgb 30.5 pg (27.0-32.0); Mean Corpuscular Volume 89.3 fL (81-99); Mean Platelet Vol. 9.5 fl (6.2-12.0); Monocyte# 0.69 X10^3/uL; Monocyte% 12.9 % (0-10); NRBC Flagged by Analyzer 0 % (0-5); Neutrophil # 2.97 X10^3/uL (2.7-7.7); Neutrophil % 55.5 % (47-70); Platelet Count 329 K/mm3 (150-450); RBC Distribution Width CV 12.7 % (11.6-14.6); RBC Distribution Width SD 41.4 fl (35.1-43.9); Red Blood Count 4.29 M/mm3 (4.2-5.4); White Blood Count 5.4 K/mm3 (4.4-11.0)
[2025-01-16 13:35] LABS: Hemoglobin A1c 6.1 % (<=5.6)
[2025-01-16 13:47] LABS: ALB/GLOB Ratio 1.6 RATIO (0.9-2.4); AST(SGOT) 21 U/L (<=31); Alanine Aminotransfer ALT/SGPT 14 U/L (<=34); Albumin, Serum 4.4 g/dL (3.4-4.8); Alkaline Phosphatase 48 U/L (35-104); Anion Gap 12 (5-15); BUN 18 mg/dL (4-19); BUN/Creat Ratio 19.4 RATIO (10-20); Calcium,Total 9.5 mg/dL (7.6-11.0); Carbon Dioxide 24.6 mmol/L (21.0-32.0); Chloride 97 mmol/L (98-108); Cholesterol 168 mg/dL (<=200); Creatinine, Serum 0.94 mg/dL (0.70-1.20); EST Glomerular Filtration Rate 63 (>60); Globulin 2.8 g/dL (2.2-4.2); Glucose 108 mg/dL (70-99); High Density Lipoprotein 85 mg/dL; Low Density Lipoprotein Calc. 61 mg/dL; Potassium 3.9 mmol/L (3.3-5.1); Protein, Total 7.2 g/dL (5.9-8.4); Sodium Level 134 mmol/L (133-145); Total Bilirubin 0.25 mg/dL (0.00-1.30); Triglycerides 115 mg/dL; Very Low Density Lipoprotein 23 mg/dL (5-40); cholesterol:hdl ratio screen 1.99
[2025-01-16 13:51] LABS: Vitamin D,25 Hydroxy 43.5 ng/mL (30-100)
== END | disposition home or self-care (01) ==
PROVIDERS: PCP Family Medicine; Visit Provider Family Medicine
DX: I10 Essential (primary) hypertension (principal); M81.0 Age-related osteoporosis without current pathological fracture; E78.5 Hyperlipidemia, unspecified; R73.01 Impaired fasting glucose
CPT/HCPCS: 36415; 80053; 80061; 82306; 83036; 85025

== ENCOUNTER → 2025-02-25 | Outpatient (CLI) | payer MEDICARE, SELFPAY ==
--- NOTE | 2025-02-25 09:11 | BI_ITS ---
EXAM: SCRN MAMM (CAD)W/JACKIE BILAT DATE: 02/25/2025 CLINICAL HISTORY: F, Age 75 y/o , SCREENING Aunt with breast cancer. BREAST CANCER RISK ASSESSMENT: Not assessed. TECHNIQUE: Bilateral screening digital breast tomosynthesis with 2D and 3D images. Computer aided detection. COMPARISON: Prior exam(s) dated February 07, 2024.. FINDINGS: TISSUE DENSITY: The breast tissue is composed of scattered area of fibroglandular density. Bilateral Breast Mammographic Findings: No significant masses, calcifications or other abnormalities are identified. No suspicious masses, areas of developing architectural distortion, or suspicious calcifications. There has been no significant interval change. BI/SCRN MAMM (CAD)W/JACKIE BILAT IMPRESSION: OVERALL FINAL ASSESSMENT: BIRADS 1 NEGATIVE RECOMMENDATION: Routine annual follow-up in 1 Year A letter with findings and recommendations will be mailed to the patient. Reading Location: [place] [id number]
--- NOTE | 2025-02-25 09:17 | BD_ITS ---
PROCEDURE: DEXA BONE DENSITY STUDY 02/25/2025 REASON FOR EXAM: F, age 75 y/o . Postmenopausal. TECHNIQUE: DXA scan of sites with data reported below. REFERENCE LINKS: [facility] Adult Positions COMPARISON: Prior study dated January 24, 2023. FINDINGS: BMD and T-SCORES Lumbar spine: 1.129 g/cm2, T-score 0.5 Levels: L1 through L4 Change from prior: Improvement of 4.1%. Left femoral neck: 0.599 g/cm2, T-score -2.2 Femoral neck comparison data not recommended for monitoring change. Left total hip: 0.740 g/cm2, T-score -1.7 Change from prior: Improvement of 3.8%. Right femoral neck: 0.621 g/cm2, T-score -2.1 Femoral neck comparison data not recommended for monitoring change. Right total hip: 0.778 g/cm2, T-score -1 point Change from prior: Improvement of 3%. The World Health Organization has defined the following categories based on bone density: Normal bone density: T-score equal to or greater than -1.0 Osteopenia: T-score between -1.0 and -2.5 Osteoporosis: T-score equal to or less than -2.5 The patient does meet the pharmacological treatment recommendations for prevention of osteoporosis. BD/Dexa Bone Density Study IMPRESSION: OSTEOPENIA. Recommend follow-up as clinically warranted. Reading Location: [place] [id number]
== END | disposition home or self-care (01) ==
LOC: OPBD 09:10
PROVIDERS: PCP Family Medicine; Referring Provider Family Medicine; Visit Provider Family Medicine
DX: Z12.31 Encounter for screening mammogram for malignant neoplasm of breast (principal); Z78.0 Asymptomatic menopausal state; M85.80 Other specified disorders of bone density and structure, unspecified site; Z80.3 Family history of malignant neoplasm of breast; M81.0 Age-related osteoporosis without current pathological fracture
CPT/HCPCS: 77063; 77067; 77080

== ENCOUNTER → 2025-05-21 | Outpatient (CLI) | payer MEDICARE, SELFPAY ==
[2025-05-21 12:42] LABS: Hematocrit 38.4 % (37-47); Hemoglobin 13.5 g/dL (12.0-15.0); Immature Granulocytes Count 0.020 X10^3/uL (0.0-0.0); Mean Corp Hgb Conc 35.2 g/dL (32-36); Mean Corpuscular Volume 88.5 fL (81-99); Mean Platelet Vol. 9.8 fl (6.2-12.0); NRBC Flagged by Analyzer 0 % (0-5); Platelet Count 317 K/mm3 (150-450); RBC Distribution Width CV 12.7 % (11.6-14.6); RBC Distribution Width SD 41.5 fl (35.1-43.9); Red Blood Count 4.34 M/mm3 (4.2-5.4); White Blood Count 6.0 K/mm3 (4.4-11.0)
[2025-05-21 13:03] LABS: Magnesium 2.0 mg/dL (1.5-2.2); Pro- Brain NATRIURETIC PEPTIDE 552 pg/mL (<=1800); Troponin T High Sensitivity 15 ng/L (<=14)
== END | disposition home or self-care (01) ==
LOC: BFHLAB 10:20
PROVIDERS: PCP Family Medicine; Visit Provider Nurse Practitioner Family
DX: R07.9 Chest pain, unspecified (principal); R00.2 Palpitations
CPT/HCPCS: 36415; 83735; 83880; 84484; 85025

== ENCOUNTER → 2025-06-24 | Outpatient (CLI) | payer MEDICARE, SELFPAY ==
--- NOTE | 2025-06-24 09:16 | ECHOD_ITS ---
Reason For Study Reason For Study: Palpitations Procedure This was a 2D Doppler, Color Flow transthoracic echocardiogram. Exam performed in department. Left Ventricle Normal LV size. Left ventricular systolic function is normal. The left ventricular ejection fraction is 65 %. Normal diastology for age. No regional wall motion abnormalities noted. Right Ventricle Normal right ventricle. Normal systolic function. Atria The left and right atria are normal. Mitral Valve There is Mild focal posterior mitral annular calcification. The mitral valve is structurally normal. No prolapse or stenosis seen. Mild (1+) mitral valve insufficiency. Tricuspid Valve Moderate (2+) tricuspid valve insufficiency. Right ventricular systolic pressure estimated to be 44 mmHg. Aortic Valve Trisinus/trileaflet aortic valve. Trivial aortic valve insufficiency. Pulmonic Valve Normal pulmonic valve. Trivial pulmonic valve insufficiency. Great Vessels Normal sized aortic root. Pericardium/Pleural No pericardial effusion. MMode/2D Measurements & Calculations LVIDd: 4.0 cm IVSd: 0.94 cm Ao root diam: 3.0 cm LVIDs: 2.5 cm LVPWd: 0.89 cm RVDd: 4.5 cm FS: 36.8 % LAV(MOD-bp): 50.8 ml LVAd ap4: 28.7 cm2 LVAd ap2: 29.4 cm2 LAV(MOD-bp) Indexed: 28.8 ml/m2 LVLd ap4: 8.8 cm LVLd ap2: 8.8 cm LAV(MOD-sp2): 60.6 ml EDV(MOD-sp4): 78.5 ml EDV(MOD-sp2): 82.2 ml LAV(MOD-sp4): 42.5 ml EDV(sp4-el): 79.3 ml EDV(sp2-el): 83.2 ml LVAs ap4: 14.0 cm2 LVAs ap2: 14.4 cm2 LVLs ap4: 7.0 cm LVLs ap2: 6.9 cm ESV(MOD-sp4): 24.0 ml ESV(MOD-sp2): 25.6 ml ESV(sp4-el): 23.7 ml ESV(sp2-el): 25.4 ml EF(MOD-sp4): 69.4 % EF(MOD-sp2): 68.8 % EF(sp4-el): 70.1 % SV(MOD-sp4): 54.5 ml SV(MOD-sp2): 56.6 ml SV(sp4-el): 55.6 ml SI(MOD-sp4): 31.0 ml/m2 SI(MOD-sp2): 32.2 ml/m2 LA A4 area: 17.4 cm2 LA dimension(2D): 4.2 cm RA A4 area: 13.3 cm2 TAPSE: 2.2 cm Time Measurements MV dec time: 0.24 sec Doppler Measurements & Calculations MV E max devin: 82.2 cm/sec Lat Peak E' Devin: 11.1 cm/sec Med Peak E' Devin: 7.0 cm/sec MV A max devin: 89.1 cm/sec E/E' lat: 7.4 E/E' med: 11.8 MV E/A: 0.92 Ao V2 max: 163.2 cm/sec LV V1 max: 156.9 cm/sec MV dec slope: 341.2 cm/sec2 Ao max P.7 mmHg LV V1 max P.8 mmHg Ao V2 mean: 103.5 cm/sec LV V1 mean P.6 mmHg Ao mean P.1 mmHg LV V1 mean: 100.4 cm/sec Ao V2 VTI: 40.8 cm LV V1 VTI: 35.2 cm AV (velocity ratio): 0.86 PA V2 max: 129.4 cm/sec PI end-d devin: 83.0 cm/sec TR max devin: 269.0 cm/sec TR max P.0 mmHg ECHO/Echo Complete Interpretation Summary The left ventricular ejection fraction is 65 %. There is Mild focal posterior mitral annular calcification. Mild (1+) mitral valve insufficiency. Moderate (2+) tricuspid valve insufficiency. Right ventricular systolic pressure estimated to be 44 mmHg. Ordering Physician: Ирина Garza Referring Physician: Ирина Garza Performed By: Ирина Lacye, DIONI, RVT
--- NOTE | 2025-06-24 12:16 | STRESSREP_ITS ---
Stress Test Report Date: 06/24/2025 Procedure: Exercise tolerance test Indications: Chest discomfort Consent: Per the patient Procedure: The patient exercised on a Arash protocol for 6 minutes achieving a peak heart rate of 131 bpm (91% predicted maximal heart rate) with a peak blood pressure 194/60 mmHg and a peak MET capacity of approximately 7.0 MET's. The baseline ECG demonstrated sinus rhythm. The peak exercise ECG did not show any ischemic changes. Frequent PVCs noted during exercise and in recovery including a 4 beat run. The functional capacity was considered very good for age. The patient had no complaints of chest discomfort during exercise or recovery. The examination was discontinued secondary to target heart rate being achieved. Impression: 1. Technically adequate (percent predicted maximal heart rate greater than 85%) exercise tolerance test 2. Peak exercise ECG with no ischemic changes 3. Frequent PVCs noted during exercise and in recovery, including a 4 beat run of NSVT. 4. Abnormal exercise stress test for PVCs including a 4 beat run. This note was generated with [employer] customer insightation software. It may contain incorrect words, spelling, and punctuation that were not noted in checking the note before signing.
== END | disposition home or self-care (01) ==
PROVIDERS: PCP Family Medicine; Referring Provider Nurse Practitioner Family; Visit Provider Nurse Practitioner Family
DX: R07.9 Chest pain, unspecified (principal); R00.2 Palpitations
CPT/HCPCS: 93017; 93306

== ENCOUNTER → 2025-09-19 | Outpatient (CLI) | payer MEDICARE, SELFPAY | END | disposition home or self-care (01) | LOC: PSN 07:53 | PROVIDERS: PCP Family Medicine; Referring Provider Internal Medicine Cardiovascular Disease; Visit Provider Internal Medicine Cardiovascular Disease | DX: I49.3 Ventricular premature depolarization (principal) | CPT/HCPCS: 93225; 93226 ==